=== PATIENT | male | born 1970 | race Caucasian/White ===

== ENCOUNTER 2016-12-14 16:07 | Emergency (ER) | payer OTHER | END 2016-12-14 17:40 | disposition left against medical advice (07) | LOC: ER1 16:07 | DX: Z53.21 Procedure and treatment not carried out due to patient leaving prior to being seen by health care provider (principal) ==

== ENCOUNTER 2016-12-26 21:59 | Emergency (ER) | payer OTHER | END 2016-12-27 00:32 | disposition home or self-care (01) | LOC: ER1 21:59 | DX: M23.92 Unspecified internal derangement of left knee (principal); M17.12 Unilateral primary osteoarthritis, left knee; I10 Essential (primary) hypertension; Z79.899 Other long term (current) drug therapy | CPT/HCPCS: 73700; 99284 ==